=== PATIENT | male | born 1950 | race Caucasian/White ===

== ENCOUNTER 2019-10-23 08:41 | Day surgery (SDC) | payer MEDICARE, BC ==
[~2019-10-23 08:41] MED LIST: Lactated Ringers 1,000 ML IV SCH; Sodium Chloride 0.9% 10 ML Syringe FLUSH PRN
[2019-10-23] MEDS ORDERED: Lidocaine 1% PF 2 ML SDV INJECT ONE (08:42)
[2019-10-23] MEDS ORDERED: Propofol 200 MG/20 ML SDV IV ONE (08:42)
--- NOTE | 2019-10-23 10:01 | PCM.OPNOTE ---
- General Post-Op/Procedure Note Date of Surgery/Procedure: 10/23/19 Operative Procedure(s): c scope Findings: sigmoid diverticulosis Pre Op Diagnosis: screening Post-Op Diagnosis: sigmoid diverticulosis Anesthesia Technique: MAC Primary Surgeon: Darrin Lozano Anesthesia Provider: Ja Jean Baptiste Pathology: none Complications: None Condition: Good Free Text/Narrative:: see dictation
[2019-10-23 10:30] VITALS: BP 116/62; PULSE 69
--- NOTE | 2019-10-24 07:56 | OR ---
DATE OF OPERATION: 10/23/2019 SURGEON: Darrin Lozano MD PROCEDURE PERFORMED: Colonoscopy. PREOPERATIVE DIAGNOSIS: Need for colon cancer screening. POSTOPERATIVE DIAGNOSIS: Sigmoid diverticulosis. INDICATIONS FOR PROCEDURE: This is a 69-year-old white male who presents for routine screening colonoscopy. He was offered and accepted same. DESCRIPTION OF OPERATION: After an excellent IV sedation was administered, digital rectal exam was performed. No marked abnormality was noted. Flexible colonoscope was inserted and advanced to the cecum. The prep was excellent. Following findings were noted: Ascending colon, unremarkable. Transverse colon, unremarkable. Descending colon, unremarkable. Sigmoid, scattered diverticula. Rectum and anus, unremarkable. The patient tolerated the procedure well, was taken to Recovery in good condition. /[id number] /BRIANNA
== END 2019-10-23 10:34 | disposition home or self-care (01) ==
LOC: FB.SDS 08:41
PROVIDERS: ATTEND Surgery
DX: Z12.11 Encounter for screening for malignant neoplasm of colon (principal); K57.30 Diverticulosis of large intestine without perforation or abscess without bleeding; G56.00 Carpal tunnel syndrome, unspecified upper limb; E66.9 Obesity, unspecified; Z68.28 Body mass index [BMI] 28.0-28.9, adult; Z98.890 Other specified postprocedural states; Z88.1 Allergy status to other antibiotic agents
CPT/HCPCS: 00812; G0121; J2001; J2704; J7120